=== PATIENT | male | born 1980 | race Caucasian/White ===

== ENCOUNTER 2020-12-04 18:07 | Inpatient (IN) | payer SELFPAY ==
[~2020-12-04] VITALS: Ht 180.3 cm; Wt 117.9 kg
--- NOTE | 2020-12-04 18:10 | NUR ---
[id number], WAS UNRESPONSIVE W/ GIRLFRIEND AND WAS GIVEN INTRANASAL NARCAN. 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 BG 90. PATIENT ASLEEP BUT RESPONSIVE TO STIMULI, INCOHERENT SPEECH. DR. VALLADARES AT BEDSIDE FOR EVAL. PATIENT CONNECTED TO THE DRAWSTRING KNOTTER.
[2020-12-04] MEDS ORDERED: NALOXONE PREFILLED SYRINGE 2 MG/2 ML SYRINGE ONE (18:20)
[2020-12-04] MEDS ORDERED: IV NS 0.9% 1,000 ML IV ONE (18:30)
[2020-12-04] MEDS ORDERED: NALOXONE PREFILLED SYRINGE 2 MG/2 ML SYRINGE IV ONE ×2 (18:30→20:00)
--- NOTE | 2020-12-04 18:40 | NUR ---
PERIPHERAL IV INSERTED ON LEFT FOOT AND LEFT HAND G20 IV.
[2020-12-04 18:44] LABS: BASOPHILS # (AUTO) 0.1 K/uL (0.0-0.2); BASOPHILS % (AUTO) 0.7 % (0.0-2.0); EOSINOPHILS % (AUTO) 2.4 % (0.0-6.0); HEMATOCRIT 43 % (39-51); HEMOGLOBIN 14.6 g/dL (13.5-17.5); LYMPHOCYTES # (AUTO) 4.8 K/uL (0.8-4.8); LYMPHOCYTES % (AUTO) 51.1 % (20.0-44.0); MEAN CORPUSCULAR HGB CONC 34 g/dl (31.0-36.0); MEAN CORPUSCULAR VOLUME 88 fL (80-96); MONOCYTES # (AUTO) 0.8 K/uL (0.1-1.30); MONOCYTES % (AUTO) 8.2 % (2.0-12.0); NEUTROPHILS # (AUTO) 3.5 K/uL (1.8-8.9); NEUTROPHILS % (AUTO) 37.6 % (43.0-81.0); PLATELET COUNT (AUTO) 211 K/uL (150-450); RED BLOOD CELL COUNT(AUTO) 4.92 MIL/uL (4.5-6.0); WHITE BLOOD COUNT (AUTO) 9.3 K/uL (4.3-11.0)
--- NOTE | 2020-12-04 18:50 | NUR ---
AFTER NARCAN IV PATIENT IS MORE VERBALLY RESPONSIVE. PATIENT IS ON THE PEDICURIST FOR CLOSE MONITORING. NO RESPIRATORY DISTRESS NOTED.
--- NOTE | 2020-12-04 18:50 | NUR ---
STRAIGHT CATHETER DONE, URINE OBTAINED AND SENT TO LAB.
[2020-12-04 18:53] LABS: CALCIUM, SERUM 9.2 mg/dL (8.5-10.1); CARBON DIOXIDE 25 mmol/L (21-32); CHLORIDE 106 mmol/L (98-107); CREATININE 0.8 mg/dL (0.6-1.3); GLUCOSE 92 mg/dL (74-106); POTASSIUM 3.4 mmol/L (3.5-5.1); SODIUM SERUM 139 mmol/L (136-145); UREA NITROGEN, BLOOD 15 mg/dL (7-18)
[2020-12-04 18:59] LABS: ALANINE AMINOTRANSFERASE 120 U/L (12-78); ALBUMIN 3.7 g/dL (3.4-5.0); ALCOHOL, BLOOD < 3 mg/dL (0-0); ALKALINE PHOSPHATASE 71 U/L (46-116); ASPARTATE AMINOTRANSFERASE 67 U/L (15-37); BILIRUBIN,DIRECT 0.2 mg/dL (0.0-0.2); BILIRUBIN,TOTAL 0.7 mg/dL (0.2-1.0); TOTAL PROTEIN, SERUM 7.5 g/dL (6.4-8.2)
[2020-12-04 19:00] LABS: ACETAMINOPHEN < 2 ug/ml (10-30)
[2020-12-04 19:07] LABS: BILIRUBIN,URINE SMALL (NEGATIVE); COLOR,URINE ORANGE (YELLOW); LEUKOCYTE ESTERASE ,URINE Negative (NEGATIVE); NITRITE, URINE Negative (NEGATIVE); PROTEIN,URINE 100 mg/dl (NEGATIVE); UGLUCOSE Negative (NEGATIVE)
[2020-12-04 19:24] LABS: BACTERIA,URINE Rare /HPF (None Seen); RBC,URINE NONE SEEN /HPF (0-2); SQUAMOUS EPITHELIAL CELL,UR Few /HPF (None Seen); WBC,URINE NONE SEEN /HPF (0-3)
--- NOTE | 2020-12-04 19:56 | NUR ---
PT MORE AWAKE AFTER 1MG OF NARCAN. EYES OPEN AND SPEAKING
--- NOTE | 2020-12-04 19:57 | NUR ---
COVID SWAB SENT TO LAB
[2020-12-04] MEDS ORDERED: NALOXONE HCL 4 MG in IV NS 0.9% 240 ML IV PRN (20:30)
--- NOTE | 2020-12-04 20:39 | NUR ---
called pharmacy for [facility]
[2020-12-04] MEDS ORDERED: MAGNESIUM HYDROXIDE 30 ML UDC PO PRN (21:00)
[2020-12-04] MEDS ORDERED: MAG HYDROX/AL HYDROX/SIMETH 30 ML UDC PO PRN (21:00)
[2020-12-04] MEDS ORDERED: Z GUARD REMEDY 2 OZ OINT TP PRN (21:00)
[2020-12-04] MEDS ORDERED: ONDANSETRON HCL/PF 4 MG/2 ML VIAL IVP PRN (21:00)
[2020-12-04] MEDS ORDERED: ZOLPIDEM TARTRATE 5 MG TABLET PO PRN (21:00)
[2020-12-04] MEDS ORDERED: ACETAMINOPHEN 325 MG TABLET PO PRN (21:00)
[2020-12-04] MEDS ORDERED: IV D5/0.45 NACL 1,000 ML IV PRN (21:00)
--- NOTE | 2020-12-04 21:50 | NUR ---
pt awake and speaking aaox4 breathing evenly and unlabored, vss
--- NOTE | 2020-12-04 22:39 | NUR ---
attempted to give report. rn busy.will call back
--- NOTE | 2020-12-04 22:53 | NUR ---
gave report to angie moss for [facility]
--- NOTE | 2020-12-04 23:25 | NUR ---
RN NOTES PT ARRIVED TO UNIT VIA GURNEY ACCOMPANIED BY TWO RNS. PT ASLEEP. PT WOKEN UP AFTER STERNAL RUB HOWEVER VERY LETHARGIC A/O X 3. PT TRANSFERRED TO BED. PT ON ROOM AIR NO PAIN OR RESPIRATORY DISTRESS NOTED AT THIS TIME. VITAL SIGNS STABLE. PT PLACED ON A TELE MONITOR READING SR WITH PVC. PT STARTED WAKING UP MORE WHEN WE WERE APPLYING TELE MONITOR REFUSED BODY CHECK AT THIS TIME AND DID NOT WISH TO TAKE OF HIS CLOTHES BELONGINGS CHECKED WITH SENIOR COMPLIANCE ANALYST NOTED. HOB ELEVATED FOR ASPIRATION PRECAUTIONS. PT ORIENTED TO ROOM AND UNIT. URINAL PROVIDED AND BED ALARM TURNED ON. CALL LIGHT PLACED WITHIN REACH. PT RUNNING D5 1/2 @ 75 ML/HR TOLERATING WELL. PT HAS IV ACCES ONT HE LFT HAND 20G AND ON THE LEFT FOOT 20 G. SAFETY MEASURES FOLLOWED AND MAINTAINED AT ALL TIMES WILL CONTINUE TO MONITOR.
[2020-12-04 23:55] VITALS: BP 110/78
[2020-12-05 02:02] VITALS: BP 110/57
[2020-12-05 07:18] LABS: CALCIUM, SERUM 8.7 mg/dL (8.5-10.1); CREATININE 0.7 mg/dL (0.6-1.3); MAGNESIUM 2.1 mg/dL (1.8-2.4); PHOSPHORUS 3.2 mg/dL (2.5-4.9)
[2020-12-05 07:50] LABS: THYROID STIMULATING HORMONE 0.564 uIU/mL (0.358-3.74)
[2020-12-05 08:00] VITALS: BP 124/71
== END 2020-12-05 12:45 | disposition home or self-care (01) | DRG 917 ==
LOC: ER 18:08 → TELE 22:04
PROVIDERS: ADMIT Student in an Organized Health Care Education/Training Program; ATTEND Nurse Practitioner Acute Care
DX: T40.411A Poisoning by fentanyl or fentanyl analogs, accidental (unintentional), initial encounter (principal); G92 Toxic encephalopathy; J98.11 Atelectasis; T43.621A Poisoning by amphetamines, accidental (unintentional), initial encounter; Y92.89 Other specified places as the place of occurrence of the external cause; Z20.822 Contact with and (suspected) exposure to COVID-19; E87.6 Hypokalemia; R74.01 Elevation of levels of liver transaminase levels; F19.188 Other psychoactive substance abuse with other psychoactive substance-induced disorder
CPT/HCPCS: 36415; 71045-TC; 80048-TC; 80061-TC; 80076-TC; 81001; 82962-TC; 83735-TC; 84100-TC; 84443-TC; 84484-TC; 85025-TC; 87081-TC; C9803; G0378; G0480; J2310; J2405; J7030; J7050